=== PATIENT | female | born 1955 | race Caucasian/White ===

== ENCOUNTER 2016-07-12 13:25 | Emergency (ER) | payer OTHER ==
[~2016-07-12] VITALS: Ht 152.4 cm; Wt 99.9 kg
[~2016-07-12 13:25] MED LIST: AMITRIPTYLINE H25 MG PO; B-125000 MCG PO; BACLOFEN10 MG PO; BENTYL10 MG PO; BIOTIN 5000MCG PO; CALCIUM CITRAT250 MG PO; CALCIUM CITRATE PO; IRON CHEWS15 MG PO; IRON18 MG PO; LEVOTHYROXINE50 MCG PO; MULTIVITAMIN1 EAC2 PO; NORCO 5/3251 TABLET PO; OXYCODONE HCL5 MG PO; PERCOCET 5/31 TABLET PO; PRILOSEC OTC20 MG PO; VITAMIN B12; VITAMIN D1000 UNIT PO; VITAMIN D31000 UNI2 PO; ZOFRAN ODT4 MG PO
[2016-07-12] MEDS ORDERED: BENZONATATE100 MG PO (13:46)
[2016-07-12] MEDS ORDERED: CYANOCOBAL1000 MCG/2 IM (13:47)
[2016-07-12] MEDS ORDERED: PROAIR HFA8.5 GM IH (13:47)
[2016-07-12] MEDS ORDERED: DIAZEPAM5 MG PO (13:47)
[2016-07-12] MEDS ORDERED: FEXOFENADINE H180 MG PO (13:47)
[2016-07-12] MEDS ORDERED: LEVOFLOXACIN750 MG PO (13:48)
[2016-07-12] MEDS ORDERED: CALCIUM 500 MG1 EACH PO (13:48)
[2016-07-12] MEDS ORDERED: MAGNESIUM400 M1 PO (13:48)
[2016-07-12 15:06] LABS: EOSINOPHIL (%) 0.7 % (0-5); HEMATOCRIT 37.4 % (36.0-46.0); IMMATURE GRANULOCYTE (%) 0.2 % (0.0-0.7); IMMATURE GRANULOCYTE COUNT 0.1 K/uL; LYMPHOCYTE COUNT 1.7 K/uL (1.0-2.8); MCH 32.3 PG (29.0-34.0); MCHC 34.8 G/DL (30.0-36.0); MCV 92.8 FL (83-99); MEAN PLAT.VOLUME 9.7 uM^3 (9.5-12.4); MONOCYTE (%) 4.7 % (3-12); MONOCYTE COUNT 0.2 K/uL (0-0.8); NEUTROPHIL (%) 55.1 % (45-76); NEUTROPHIL COUNT 2.5 K/uL (1.8-6.4); PLATELET COUNT 119 K/uL (156-360); RBC DIS.WIDTH-CV 13.2 % (11.8-14.6); RBC DIS.WIDTH-SD 43.8 % (39-53); RED BLOOD COUNT 4.03 M/uL (3.80-5.20); WHITE BLOOD COUNT 4.5 K/uL (4.1-10.2)
[2016-07-12 15:15] LABS: CHLORIDE 108 mEq/L (99-109); POTASSIUM 3.4 mEq/L (3.7-5.4); SODIUM 142 mEq/L (136-147)
[2016-07-12 15:17] LABS: GLUCOSE 104 mg/dL (70-99)
[2016-07-12 15:18] LABS: ANION GAP 13 MEQ/L (2-14)
[2016-07-12 15:20] LABS: GFR ESTIMATE (CALCULATED) > 59 mL/min/
[2016-07-12 15:21] LABS: UREA NITROGEN (BUN) 21 mg/dL (9-23)
[2016-07-12 16:15] VITALS: BP 126/96
== END 2016-07-12 16:41 | disposition home or self-care (01) ==
LOC: EME 13:25
PROVIDERS: Emergency Medicine
DX: J20.9 Acute bronchitis, unspecified (principal); C91.11 Chronic lymphocytic leukemia of B-cell type in remission; E07.9 Disorder of thyroid, unspecified; Z87.891 Personal history of nicotine dependence
CPT/HCPCS: 71020; 80048; 85025; 93005; 94640; 99281; 99284

== ENCOUNTER 2017-09-11 07:58 | Emergency (ER) | payer OTHER ==
[~2017-09-11] VITALS: Ht 152.4 cm; Wt 105.4 kg
[~2017-09-11 07:58] MED LIST changes: +BENZONATATE100 MG PO; +CALCIUM 600 +1 EAC1 PO; +CYANOCOBAL1000 MCG/2 IM; +DIAZEPAM5 MG PO; +FEXOFENADINE H180 MG PO; +LEVOFLOXACIN750 MG PO; +MAGNESIUM250 MG PO; +PROAIR HFA8.5 GM IH; -VITAMIN D31000 UNI2 PO; +VITAMIN D35000 UNIT PO
[2017-09-11 08:40] LABS: HEMATOCRIT 47.3 % (36.0-46.0); HEMOGLOBIN 16.7 G/DL (11.9-15.5); MCH 33.2 PG (29.0-34.0); MCHC 35.3 G/DL (30.0-36.0); NRBC (%) 0.1 /100 WBC (0-0); PLATELET COUNT 225 K/uL (156-360); RBC DIS.WIDTH-CV 13.3 % (11.8-14.6); RBC DIS.WIDTH-SD 45.6 % (39-53); RED BLOOD COUNT 5.03 M/uL (3.80-5.20); WHITE BLOOD COUNT 17.1 K/uL (4.1-10.2)
[2017-09-11 08:42] LABS: ALBUMIN 4.8 g/dL (3.2-4.8)
[2017-09-11 08:43] LABS: CHLORIDE 104 mEq/L (99-109); POTASSIUM 4.1 mEq/L (3.7-5.4); SODIUM 142 mEq/L (136-147)
[2017-09-11 08:45] LABS: GLUCOSE 190 mg/dL (70-99); TOTAL PROTEIN 7.4 g/dL (6.4-8.3)
[2017-09-11 08:47] LABS: TOTAL BILIRUBIN 1.4 mg/dL (0.0-1.0)
[2017-09-11 08:48] LABS: ALKALINE PHOSPHATASE 99 IU/L (3-129)
[2017-09-11 08:49] LABS: GFR ESTIMATE (CALCULATED) > 59 mL/min/
[2017-09-11 08:50] LABS: AST (GOT) 20 IU/L (2-34); UREA NITROGEN (BUN) 37 mg/dL (9-23)
[2017-09-11 08:52] LABS: ALT (GPT) 36 IU/L (3-49)
[2017-09-11 10:19] LABS: LIPASE 17 U/L (1.0-51.0)
[2017-09-11] MEDS ORDERED: ADVAIR 100/501 DISK IH (14:57)
[2017-09-11] MEDS ORDERED: VITAMIN B-123000 MCG SL (15:04)
[2017-09-11] MEDS ORDERED: IRON325 M1 PO (15:04)
[2017-09-11] MEDS ORDERED: BIOTIN2500 MCG PO (15:05)
[2017-09-11 15:30] VITALS: BP 129/75
== END 2017-09-11 15:30 | disposition short-term general hospital (02) ==
LOC: EME 07:58
DX: K56.609 Unspecified intestinal obstruction, unspecified as to partial versus complete obstruction (principal); Z98.84 Bariatric surgery status; Z85.6 Personal history of leukemia; Z87.891 Personal history of nicotine dependence; Z88.0 Allergy status to penicillin
CPT/HCPCS: 74177; 80053; 81003; 83690; 85027; 86850; 86900; 86901; 99281; 99285; J2060; J2405; J3010; J7030; J7120